=== PATIENT | female | born 1970 | race American Indian/Alaskan Native ===

== ENCOUNTER 2016-08-10 08:50 | Outpatient (CLI) | payer BC ==
[2016-08-10 09:55] LABS: Hematocrit 38.1 % (30.3-42.9); Hemoglobin 12.4 gm/dl (10.1-14.3); Mean Corpuscular HGB Conc 33 % (30-34); Mean Corpuscular Hemoglobin 29 pg (28-32); Mean Corpuscular Volume 88 fl (79-97); Platelet Count 266 K/mm3 (140-440); Red Blood Count 4.32 M/mm3 (3.65-5.03); Red Cell Distribution Width 13.3 % (13.2-15.2); White Blood Count 4.2 K/mm3 (4.5-11.0)
[2016-08-10 10:18] LABS: Alanine Aminotransferase 16 units/L (7-56); Albumin 4.4 g/dL (3.9-5); Albumin/Globulin Ratio 1.4 %; Alkaline Phosphatase 57 units/L (35-129); Anion Gap 13 mmol/L; BUN/Creatinine Ratio 15.71; Bilirubin,Total 0.3 mg/dL (0.1-1.2); Blood Urea Nitrogen 11 mg/dL (7-17); Calcium 9.1 mg/dL (8.4-10.2); Carbon Dioxide 25 mmol/L (22-30); Chloride 103.7 mmol/L (98-107); Cholesterol 141 mg/dL (50-199); Glucose 91 mg/dL (65-100); HDL Cholesterol 52 mg/dL (40-59); LDL Cholesterol,Direct 81 mg/dL (50-130); Potassium 4.2 mmol/L (3.6-5.0); Sodium 137 mmol/L (137-145); Total Protein 7.6 g/dL (6.3-8.2); Triglycerides 40 mg/dL (2-149)
--- NOTE | 2016-08-10 10:36 | Mammography Report ---
BILATERAL MAMMOGRAM: FINDINGS: The breast tissue is heterogeneously dense, which could obscure detection of small masses (approximately 50%-75% glandular). No mass, distortion, suspicious calcification, or skin change is seen. There are no significant changes when compared to her prior examination in 2015. CAD was utilized. IMPRESSION: Negative mammogram. There is no mammographic evidence of malignancy. RECOMMENDATION: Follow-up per ACS guidelines. BI-RADS CATEGORY: 1 = Negative ACR BI-RADS MAMMOGRAPHIC CODES: 0 = Needs additional imaging evaluation; 1 = Negative; 2 = Benign; 3 = Probably benign; 4 = Suspicious; 5 = Malignant; 6 = Known biopsy-proven malignancy COMMENT: 1. Dense breast tissue, i.e., adenosis, fibrocystic changes, etc., may obscure an underlying neoplasm. 2. Approximately 10% of cancers are not detected with mammography. 3. A negative mammography report should not delay biopsy if a clinically suspicious mass is present. COMMENT: Patient follow-up letters are generated in [facility].
[2016-08-12 15:51] LABS: Vitamin D, 25-OH, Total 24 ng/mL (30-100)
== END 2016-08-10 08:51 | disposition home or self-care (01) ==
LOC: MAMMO 08:50
PROVIDERS: ATTEND Obstetrics & Gynecology
DX: Z12.31 Encounter for screening mammogram for malignant neoplasm of breast (principal); Z00.00 Encounter for general adult medical examination without abnormal findings
CPT/HCPCS: 36415; 80053; 80061; 82306; 83036; 84443; 85027; G0202; 77067

== ENCOUNTER 2017-06-16 07:09 | Outpatient (CLI) | payer BC ==
--- NOTE | 2017-06-16 08:30 | Ultrasound Report ---
ULTRASOUND ABDOMEN LIMITED: TECHNIQUE: Transabdominal ultrasound with color Doppler interrogation. HISTORY: right upper quadrant abdominal pain. COMPARISON: none. FINDINGS: LIVER: Normal. BILIARY SYSTEM: Normal. The CBD measures 3.2 mm. PANCREAS: Normal. RIGHT KIDNEY: Normal size, contour and position. A 1.8 x 2.1 cm cyst is noted at the superior pole. No mass, calculus or hydronephrosis. PROXIMAL AORTA: Normal. ASCITES: None. IMPRESSION: Right renal cyst, otherwise, unremarkable exam.
[2017-06-16] MEDS ORDERED: WATER FOR INJ (PF) 10 ML ONE (09:10)
[2017-06-16] MEDS ORDERED: KINEVAC IV ONE ×2 (09:11→09:15)
[2017-06-16] MEDS ORDERED: WATER FOR INJ (PF) IV ONE (09:16)
--- NOTE | 2017-06-16 10:43 | Nuclear Medicine Report ---
HEPATOBILIARY SCAN: History: Right upper quadrant pain. Comparison is made to the right upper quadrant ultrasound performed the same day. Following the injection of the radionuclide, serial scanning was obtained over the right upper quadrant. Initial imaging of the liver demonstrates a relatively normal activity pattern. Progressive concentration of the radionuclide in the bile ducts, with filling of both the gallbladder and small bowel, is identified within a normal time period. The gallbladder ejection fraction is decreased measuring 10%. The patient reports these same symptoms of pain and cramping were reproduced during the infusion of CCK. IMPRESSION: The cystic duct is patent. Decreased gallbladder ejection fraction measuring 10%. Symptomatology as described. Consider biliary dyskinesia.
== END 2017-06-16 07:10 | disposition home or self-care (01) ==
LOC: US 07:09
PROVIDERS: ATTEND Internal Medicine
DX: N28.1 Cyst of kidney, acquired (principal)
CPT/HCPCS: 76705; 78227; A9537; J2805

== ENCOUNTER 2017-07-18 10:23 | Day surgery (SDC) | payer BC ==
[~2017-07-18 10:23] MED LIST: ANCEF/STERILE WATER 2 GM/20 ML IV NR; MARCAINE-EPI 0.5%-1:200,000 INFILTRATI ONE
--- NOTE | 2017-07-18 11:21 | Anesthesia Consultation ---
Anesthesia Consult and Med Hx Date of service: 07/18/17 - Airway Anesthetic Teeth Evaluation: Good ROM Head & Neck: Adequate Mental/Hyoid Distance: Adequate Mallampati Class: Class III Intubation Access Assessment: Possibly Difficult - Pre-Operative Health Status ASA Pre-Surgery Classification: ASA2 - Pulmonary Hx Sleep Apnea: Yes (undiagnosed) - Central Nervous System Hx Psychiatric Problems: No - Endocrine Hx Liver Disease: Yes (gallbladder disease) Hx Non-Insulin Dependent Diabetes: No (takes metformin for polycystic ovarian syndrome) - Other Systems Hx Alcohol Use: No Hx Substance Use: No Hx Cancer: No Hx Obesity: Yes (BMI 33.4)
--- NOTE | 2017-07-18 11:21 | Anesthesia Day of Surgery ---
Anesthesia Day of Surgery - Day of Surgery Patient Examined: Yes Patient H&P Reviewed: Yes Patient is NPO: Yes
[2017-07-18] MEDS ORDERED: NACL 0.9% 1000 ML 1,000 ML ONE (11:24)
[2017-07-18] MEDS ORDERED: PEPCID IV ONE (11:25)
[2017-07-18] MEDS: VERSED IV NR ×2 (11:30→12:26)
[2017-07-18] MEDS ORDERED: DILAUDID ONE ×2 (11:59→13:21)
[2017-07-18] MEDS ORDERED: NACL 0.9% 1000 ML 1,000 ML IV SCH (12:00)
[2017-07-18] MEDS ORDERED: PEPCID IV NR (12:00)
[2017-07-18] MEDS ORDERED: ZEMURON IV ONE (12:00)
[2017-07-18] MEDS ORDERED: DIPRIVAN 10 MG/ML IV ONE (12:00)
[2017-07-18] MEDS ORDERED: XYLOCAINE MPF 2% ONE (12:00)
[2017-07-18] MEDS ORDERED: MARCAINE-EPI/PF 0.5%-1:200,000 INFILTRATI ONE ×2 (12:54)
[2017-07-18] MEDS ORDERED: TORADOL ONE (13:12)
[2017-07-18] MEDS ORDERED: ROBINUL ONE (13:12)
[2017-07-18] MEDS ORDERED: ZOFRAN ONE (13:12)
[2017-07-18] MEDS ORDERED: NEOSTIGMINE ONE (13:12)
--- NOTE | 2017-07-18 13:16 | Operative Report ---
Operative Report Operative Report: Date of procedure: 07/18/2017 Pre-operative diagnosis: Biliary dyskinesia Post-operative diagnosis: Same Procedure name(s): Laparoscopic cholecystectomy Surgeon: Elvis Grissom MD Clinical Social Worker: Marsha Guardado M.D. Anesthesia: General EBL: Minimal Complications: None Instrument Count: correct Indications: This is a 46-year-old female with a history of right upper quadrant pain. A workup was consistent with biliary etiology. She was offered the above-named procedures possible treatment modality. Risks and benefits discussed and all questions were answered. She was subsequently brought to the OR. Findings: As above Procedure: We reviewed the informed consent. We placed the patient supine upon the table. After adequate anesthesia was reached, the patient was prepped and draped in usual sterile fashion. A 5 mm incision was made the level of umbilicus and a Veress needle was placed at this position. The abdomen was then insufflated to 15 mmHg and a 5 mm trocar was placed through the umbilical incision. We inserted the camera at this time. Under direct vision and after infiltration of local anesthetic an 11 mm port was placed in the epigastric location. This was followed by placement of two five mm ports in the right upper quadrant. We identified the gallbladder and the fundus was grasped. This was retracted superiorly. We then grasped the infundibulum and retracted it laterally. At this time we dissected free the cystic duct infundibular junction until the triangle of Calot was clearly identified. We placed 3 clips proximally on the cystic duct, 2 distally. We placed 2 clips proximally on the cystic artery. We transected the cystic duct sharply. We transected the cystic artery using electrocautery. We then dissected the gallbladder free from its fossa using electrocautery. This was placed in Endo Catch bag and removed the abdomen to be sent to pathology for further evaluation. We assured hemostasis at this time. We then evacuated the insufflation. We removed all ports and closed all port sites using a 4-0 Monocryl in a subcuticular fashion. The wounds were bandaged sterilely. The patient tolerated procedure well. They were taken to PACU in no apparent distress after extubation.
--- NOTE | 2017-07-18 13:22 | Short Stay Summary ---
Short Stay Documentation Date of service: 07/18/17 - History H&P: obtained from office - Allergies and Medications Current Medications: Allergies clindamycin Allergy (Verified 06/16/17 09:14) Rash Home Medications Medication Instructions Recorded Confirmed Last Taken Type Metformin HCl 500 mg PO Q48H 07/10/17 07/18/17 07/16/17 History Active Medications Cefazolin Sodium (Ancef/Sterile Water 2 Gm/20 Ml) 2 gm IV PREOP NR Stop: 07/18/17 23:59 Famotidine (Pepcid) 20 mg IV PREOP NR Stop: 07/18/17 23:59 Last Admin: 07/18/17 11:29 Dose: 20 mg Sodium Chloride (Nacl 0.9% 1000 Ml) 1,000 mls @ 100 mls/hr IV DIRECT FIDENCIO Last Admin: 07/18/17 11:28 Dose: 100 mls/hr Midazolam HCl (Versed) 2 mg IV PREOP NR Stop: 07/18/17 23:59 Last Admin: 07/18/17 12:26 Dose: 1 mg - Brief post op/procedure progress note Date of procedure: 07/18/17 Pre-op diagnosis: biliary dyskinesia Post-op diagnosis: same Procedure: Laparoscopic cholecystectomy Anesthesia: GETA, local Surgeon: ALDEN LAGUNAS [employer] Superintendent: MILLA HERNANDEZ Estimated blood loss: minimal Pathology: list (gallbladder) Specimen disposition: to lab - Disposition Condition at discharge: Stable Disposition: DC-01 TO HOME OR SELFCARE Short Stay Discharge Plan Activity: no restrictions Diet: low fat Wound: keep clean and dry Follow up with: ROSIE RIVAS MD [Primary Care Provider] - 7 Days ALDEN LAGUNAS MD [Staff Physician] - 7 Days Prescriptions: Ondansetron [Zofran TAB] 4 mg PO Q8HR PRN #20 tablet PRN Reason: Nausea oxyCODONE /ACETAMINOPHEN [Percocet 5/325] 1 tab PO Q6HR PRN #30 tablet PRN Reason: Pain
[2017-07-18 13:59] VITALS: BP 112/71
== END 2017-07-18 14:45 | disposition home or self-care (01) ==
LOC: OR 10:23
PROVIDERS: ATTEND Surgery
DX: K83.9 Disease of biliary tract, unspecified (principal); E66.9 Obesity, unspecified; G47.30 Sleep apnea, unspecified; Z68.33 Body mass index [BMI] 33.0-33.9, adult; Z88.1 Allergy status to other antibiotic agents; Z79.899 Other long term (current) drug therapy
CPT/HCPCS: 47562; 81025; 82962; 88304; J0690; J1170; J1885; J2250; J2405; J2704; J2710; J7030

== ENCOUNTER 2017-07-27 07:42 | Emergency (ER) | payer BC ==
[2017-07-27] MEDS ORDERED: TYLENOL PO ONE (07:52)
[2017-07-27] MEDS ORDERED: TYLENOL ONE (07:52)
[2017-07-27 08:18] LABS: Hematocrit 39.7 % (30.3-42.9); Mean Corpuscular HGB Conc 33 % (30-34); Mean Corpuscular Hemoglobin 28 pg (28-32); Mean Corpuscular Volume 85 fl (79-97); Platelet Count 276 K/mm3 (140-440); Red Blood Count 4.65 M/mm3 (3.65-5.03); Red Cell Distribution Width 14.5 % (13.2-15.2)
[2017-07-27 08:37] LABS: Alanine Aminotransferase 71 units/L (7-56); BUN/Creatinine Ratio 15; Blood Urea Nitrogen 12 mg/dL (7-17); Calcium 8.9 mg/dL (8.4-10.2); Hemolysis Index 9
[2017-07-27] MEDS ORDERED: ZOFRAN IV ONE (09:20)
[2017-07-27] MEDS ORDERED: DILAUDID IV ONE (09:20)
[2017-07-27] MEDS ORDERED: BENADRYL IV ONE (09:20)
[2017-07-27] MEDS ORDERED: NACL 0.9% 1000 ML 1,000 ML IV ONE (09:21)
--- NOTE | 2017-07-27 09:22 | Emergency Department Report ---
ED General Adult HPI - General Chief complaint: Abdominal Pain Stated complaint: DIARRHEA/VOMITING/POST OP Time Seen by Provider: 07/27/17 09:17 Source: patient Mode of arrival: Ambulatory Limitations: No Limitations - History of Present Illness Initial comments: Patient complained of crampy lower and generalized abdominal pain associated with diarrhea. This developed after she left the hospital on cholecystectomy. She reports no problems with cholecystectomy. She was not aware of her fever which was initially measured at 101.5. She denies any cough or chest pain or respiratory symptoms. She has had some nausea but it has resolved. She has had no recent vomiting. She states he's been eating and a nurse because of diarrhea. She has had no bloody diarrhea. She reports diarrhea as often as times today. -: days(s) Location: abdomen Radiation: non-radiation Severity scale (0 -10): 0 Quality: aching Consistency: intermittent Improves with: none Worsens with: none Associated Symptoms: denies other symptoms Treatments Prior to Arrival: none - Related Data Home Medications Medication Instructions Recorded Confirmed Last Taken Metformin HCl 500 mg PO Q48H 07/10/17 07/18/17 07/16/17 Previous Rx's Medication Instructions Recorded Last Taken Type Ondansetron [Zofran TAB] 4 mg PO Q8HR PRN #20 tablet 07/18/17 Unknown Rx oxyCODONE /ACETAMINOPHEN [Percocet 1 tab PO Q6HR PRN #30 tablet 07/18/17 Unknown Rx 5/325] Allergies Allergy/AdvReac Type Severity Reaction Status Date / Time clindamycin Allergy Rash Verified 06/16/17 09:14 ED Review of Systems ROS: Stated complaint: DIARRHEA/VOMITING/POST OP Other details as noted in HPI Constitutional: denies: chills, fever Eyes: denies: eye pain, eye discharge, vision change ENT: denies: ear pain, throat pain Respiratory: denies: cough, shortness of breath, wheezing Cardiovascular: denies: chest pain, palpitations Endocrine: no symptoms reported Gastrointestinal: abdominal pain, nausea, diarrhea Genitourinary: denies: urgency, dysuria, discharge Musculoskeletal: denies: back pain, joint swelling, arthralgia Skin: denies: rash, lesions Neurological: denies: headache, weakness, paresthesias Psychiatric: denies: anxiety, depression Hematological/Lymphatic: denies: easy bleeding, easy bruising ED Past Medical Hx - Past Medical History Previous Medical History?: Yes Hx Liver Disease: Yes (gallbladder disease) Hx HIV: No Additional medical history: PCOS - Surgical History Past Surgical History?: Yes Hx Cholecystectomy: Yes - Social History Smoking Status: Never Smoker Substance Use Type: None - Medications Home Medications: Home Medications Medication Instructions Recorded Confirmed Last Taken Type Metformin HCl 500 mg PO Q48H 07/10/17 07/18/17 07/16/17 History Ondansetron [Zofran TAB] 4 mg PO Q8HR PRN #20 tablet 07/18/17 Unknown Rx oxyCODONE /ACETAMINOPHEN [Percocet 1 tab PO Q6HR PRN #30 tablet 07/18/17 Unknown Rx 5/325] ED Physical Exam - General Limitations: No Limitations General appearance: alert, in no apparent distress - Head Head exam: Present: atraumatic, normocephalic - Eye Eye exam: Present: normal appearance, PERRL, EOMI. Absent: scleral icterus - ENT ENT exam: Present: mucous membranes moist - Neck Neck exam: Present: normal inspection - Respiratory Respiratory exam: Present: normal lung sounds bilaterally. Absent: respiratory distress - Cardiovascular Cardiovascular Exam: Present: regular rate, normal rhythm. Absent: systolic murmur, diastolic murmur, rubs, gallop - GI/Abdominal GI/Abdominal exam: Present: soft, normal bowel sounds. Absent: distended, tenderness, guarding, rebound, rigid - Extremities Exam Extremities exam: Present: normal inspection - Back Exam Back exam: Present: normal inspection - Neurological Exam Neurological exam: Present: alert, oriented X3, CN II-XII intact. Absent: motor sensory deficit - Psychiatric Psychiatric exam: Present: normal affect, normal mood - Skin Skin exam: Present: warm, dry, intact, normal color. Absent: rash ED Course Vital Signs 07/27/17 07/27/17 07/27/17 07:46 07:58 08:00 Temperature 101.5 F H Pulse Rate 140 H 138 H 124 H Respiratory 18 23 29 H Rate Blood Pressure 122/92 144/84 O2 Sat by Pulse 94 100 Oximetry 07/27/17 07/27/17 07/27/17 08:30 09:00 09:30 Temperature Pulse Rate 111 H 114 H 113 H Respiratory 19 24 14 Rate Blood Pressure 116/66 101/62 112/73 O2 Sat by Pulse 96 Oximetry 07/27/17 10:00 Temperature Pulse Rate 102 H Respiratory 20 Rate Blood Pressure 115/70 O2 Sat by Pulse 97 Oximetry - Reevaluation(s) Reevaluation #1: The patient didn't have much diarrhea here but was able to give a stool sample. There was no vomiting. She did not complain of further abdominal pain after the initial analgesia. Her abdominal exam was benign CT of her abdomen was negative. 07/27/17 15:20 ED Medical Decision Making - Lab Data Result diagrams: 07/27/17 08:02 07/27/17 08:02 Critical care attestation.: If time is entered above; I have spent that time in minutes in the direct care of this critically ill patient, excluding procedure time. ED Disposition Clinical Impression: Dehydration Diarrhea Qualifiers: Diarrhea type: unspecified type Qualified Code(s): R19.7 - Diarrhea, unspecified Disposition: DC-01 TO HOME OR SELFCARE Is pt being admited?: No Does the pt Need Aspirin: No Condition: Stable Instructions: Abdominal Pain (ED), Acute Diarrhea (ED) Additional Instructions: Follow-up with your surgeon and primary care physician. Return any acute change or worsening symptoms. Referrals: PRIMARY CARE, [Primary Care Provider] - 24 Hours Time of Disposition: 15:22
[2017-07-27 10:07] VITALS: BP 115/70
[2017-07-27 10:29] LABS: Albumin 3.7 g/dL (3.9-5)
--- NOTE | 2017-07-27 14:01 | Cat Scan Report ---
CT ABDOMEN PELVIS WITH CONTRAST: HISTORY: abdominal pain. COMPARISON: none. TECHNIQUE: Helical CT in 1.25mm intervals following IV contrast. Sagittal and coronal reconstructions. FINDINGS: Lung bases: Normal. Liver: Normal. Biliary system: Cholecystectomy changes. No biliary dilatation is appreciated. Pancreas: Normal. Spleen: Normal. Kidneys/ureters/bladder: Normal. 2.4 cm right renal cyst is noted. Adrenal glands: Normal. Aorta: Normal. Intestines: Unremarkable given no oral contrast was administered. Appendix: Normal. Pelvic viscera: Within normal limits. An intrauterine device is in good position. Ascites: None. Adenopathy: None. Musculoskeletal: Normal. IMPRESSION: Unremarkable CT scan of the abdomen and pelvis with contrast.
[2017-07-27 14:56] LABS: Basophils % (Auto) 0.3 % (0.0-1.8); Lymphocytes # (Auto) 1.4 K/mm3 (1.2-5.4); Lymphocytes % (Auto) 15.8 % (13.4-35.0); Monocytes # (Auto) 1.5 K/mm3 (0.0-0.8)
[2017-07-27 15:28] LABS: Band Neutrophils # (Manual) 1.6 K/mm3; Monocytes % (Manual) 19 % (0.0-7.3); Platelet Estimate Consistent w Auto
[2017-07-27 15:39] LABS: RBC Morphology Normal
[2017-07-27 16:47] LABS: Total Cells Counted 100
[2017-07-27 16:49] LABS: Monocytes % (Auto) 17.3 % (0.0-7.3)
== END 2017-07-27 14:35 | disposition home or self-care (01) ==
LOC: ED 07:42
DX: E86.0 Dehydration (principal); R19.7 Diarrhea, unspecified
CPT/HCPCS: 36415; 74177; 80053; 84703; 85007; 85025; 87324; 96361; 96374; 96375; 99284; J1170; J1200; J2405; J7030; Q9967

== ENCOUNTER 2017-08-23 08:10 | Outpatient (CLI) | payer BC ==
--- NOTE | 2017-08-23 09:31 | Mammography Report ---
BILATERAL MAMMOGRAM: FINDINGS: The breast tissue is heterogeneously dense, which could obscure detection of small masses (approximately 50%-75% glandular). No mass, distortion, suspicious calcification, or skin change is seen. The is a biopsy marker in the inferomedial right breast. These findings are all unchanged compared to prior exams dating back to July 2015. CAD was utilized. IMPRESSION: Negative mammogram. There is no mammographic evidence of malignancy. RECOMMENDATION: Follow-up per ACS guidelines. BI-RADS CATEGORY: 1 = Negative ACR BI-RADS MAMMOGRAPHIC CODES: 0 = Needs additional imaging evaluation; 1 = Negative; 2 = Benign; 3 = Probably benign; 4 = Suspicious; 5 = Malignant; 6 = Known biopsy-proven malignancy COMMENT: 1. Dense breast tissue, i.e., adenosis, fibrocystic changes, etc., may obscure an underlying neoplasm. 2. Approximately 10% of cancers are not detected with mammography. 3. A negative mammography report should not delay biopsy if a clinically suspicious mass is present. COMMENT: Patient follow-up letters are generated in [employer].
== END 2017-08-23 08:11 | disposition home or self-care (01) ==
LOC: MAMMO 08:10
PROVIDERS: ATTEND Obstetrics & Gynecology
DX: Z12.31 Encounter for screening mammogram for malignant neoplasm of breast (principal)
CPT/HCPCS: 77067

== ENCOUNTER 2018-07-26 07:18 | Outpatient (CLI) | payer BC ==
--- NOTE | 2018-07-26 14:53 | Ultrasound Report ---
ULTRASOUND PELVIC COMPLETE ULTRASOUND TRANSVAGINAL HISTORY: Intrauterine device surveillance. COMPARISON: 04/12/18. TECHNIQUE: Transabdominal and transvaginal ultrasound with color doppler interrogation. FINDINGS: Uterus: The uterus is anteverted. The uterus measures 9.2 x 4.8 x 6.4 cm. No uterine fibroids are identified. Normal cervix. Endometrium: 6.8 mm. An intrauterine device is identified within the endometrial canal which extends to the uterine fundus. The position appears unchanged since 04/12/18. Right ovary: 3.2 x 2.0 x 1.9 cm. No focal abnormality. Left ovary: 5.6 x 3.1 x 3.3 cm. A 3.3 cm cyst with internal debris is noted in the left ovary. No pelvic fluid or mass is identified. Normal color doppler interrogation. IMPRESSION: Unremarkable uterus, endometrium and right ovary. The IUD appears in good position and unchanged since the previous exam. 3.3 cm slightly complex left ovarian cyst.
== END 2018-07-26 07:19 | disposition home or self-care (01) ==
LOC: US 07:18
PROVIDERS: ATTEND Obstetrics & Gynecology
DX: Z30.431 Encounter for routine checking of intrauterine contraceptive device (principal); N83.202 Unspecified ovarian cyst, left side; Z90.49 Acquired absence of other specified parts of digestive tract; E11.9 Type 2 diabetes mellitus without complications
CPT/HCPCS: 76830; 76856

== ENCOUNTER 2018-09-05 07:01 | Outpatient (CLI) | payer BC ==
--- NOTE | 2018-09-05 14:20 | Ultrasound Report ---
ULTRASOUND PELVIC COMPLETE ULTRASOUND TRANSVAGINAL HISTORY: Ovarian cyst left side. COMPARISON: 07/26/18. TECHNIQUE: Transabdominal and transvaginal ultrasound with color doppler interrogation. FINDINGS: Uterus: The uterus is anteverted. The uterus measures 9.0 x 4.7 x 6.6 cm. No uterine mass. Normal cervix. Endometrium: 6.6 mm in thickness. An intrauterine device is again noted in good position. Right ovary: 3.7 x 2.3 x 2.9 cm. There are 2 small cysts in the right ovary measuring 1.2 cm and 1.6 cm. Left ovary: 3.1 x 2.3 x 2.0 cm. The previously described left ovarian cyst has decreased from 3.3 cm to 1.5 cm. No pelvic fluid or mass is identified. Normal color doppler interrogation. IMPRESSION: Bilateral simple ovarian cysts as described
== END 2018-09-05 07:02 | disposition home or self-care (01) ==
LOC: US 07:01
PROVIDERS: ATTEND Obstetrics & Gynecology
DX: Z13.1 Encounter for screening for diabetes mellitus (principal); N83.292 Other ovarian cyst, left side; N83.291 Other ovarian cyst, right side; E66.9 Obesity, unspecified; E11.9 Type 2 diabetes mellitus without complications; Z90.49 Acquired absence of other specified parts of digestive tract
CPT/HCPCS: 36415; 76830; 76856; 83036

== ENCOUNTER 2018-09-06 07:22 | Outpatient (CLI) | payer BC ==
--- NOTE | 2018-09-06 13:06 | Mammography Report ---
BILATERAL DIGITAL SCREENING MAMMOGRAM with CAD: 09/06/18 07:22:00 CLINICAL: Routine screening.Previous right benign biopsy. COMPARISON:08/23/17 FINDINGS: There are scattered areas of fibroglandular density.A right lower inner biopsy clip. No mass, architectural distortion or suspicious calcifications. IMPRESSION: No mammographic evidence of malignancy. BI-RADS CATEGORY: 2 -- Benign RECOMMENDATION: Routine mammographic screening in one year. COMMENT: Patient follow-up letters are generated by our [employer] application.
== END 2018-09-06 07:23 | disposition home or self-care (01) ==
LOC: MAMMO 07:22
PROVIDERS: ATTEND Obstetrics & Gynecology
DX: Z12.31 Encounter for screening mammogram for malignant neoplasm of breast (principal); E66.9 Obesity, unspecified; E11.9 Type 2 diabetes mellitus without complications
CPT/HCPCS: 77067

== ENCOUNTER 2018-09-24 12:12 | Emergency (ER) | payer BC ==
[2018-09-24 12:23] VITALS: BP 139/74
--- NOTE | 2018-09-24 12:25 | Emergency Department Report ---
Blank Doc - Documentation Documentation: This is a 47-year-old female that presents with right eye pain. Exam shows ri ght eye congential swelling. Stated has foreign body sensation. This initial assessment/diagnostic orders/clinical plan/treatment(s) is/are subject to change based on patient's health status, clinical progression and re- assessment by fellow clinical providers in the ED. Further treatment and workup at subsequent clinical providers discretion. Patient/guardians urged not to elope from the ED as their condition may be serious if not clinically assessed and managed. Initial orders include: 1- Patient sent to [facility] for further evaluation and treatment 2- visual acuity 3- hyatt lamp 4- Tonopen
--- NOTE | 2018-09-24 13:33 | Emergency Department Report ---
[facility] Chief Complaint: Eye Problems Stated Complaint: ALLERGIC REACTION Time Seen by Provider: 09/24/18 12:19 Duration: 2 Days Side: Right Severity: moderate Symptoms: Yes Eye Itching, Yes Eye Redness, Yes Eye Pain (mild discomfort), Yes Mucous Drainage, Yes Blurred Vision (had a film over the visual field ealier), Yes H/O Allergic Rhinitis (mild), No Purulent Drainage, No Preceding URI, No Contact Lens Use, No Trauma, No Fever ED Review of Systems ROS: Stated complaint: ALLERGIC REACTION Other details as noted in HPI Comment: All other systems reviewed and negative ED Past Medical Hx - Past Medical History Previous Medical History?: Yes Hx Liver Disease: Yes (gallbladder disease) Hx HIV: No Additional medical history: PCOS - Surgical History Hx Cholecystectomy: Yes - Social History Smoking Status: Never Smoker Substance Use Type: None - Medications Home Medications: Home Medications Medication Instructions Recorded Confirmed Last Taken Type Metformin HCl 500 mg PO Q48H 07/10/17 07/18/17 07/16/17 History Ondansetron [Zofran TAB] 4 mg PO Q8HR PRN #20 tablet 07/18/17 Unknown Rx oxyCODONE /ACETAMINOPHEN [Percocet 1 tab PO Q6HR PRN #30 tablet 07/18/17 Unknown Rx 5/325] HYDROcodone/APAP 5-325 [[place]ar[place] 1 each PO Q6HR PRN #10 tablet 04/12/18 Unknown Rx 5/325] Gentamicin 0.3% Ophth Soln 2 drops OP Q4H #1 bottle 09/24/18 Unknown Rx Naphazoline HCl/Pheniramine 15 ml OP TID #1 bottle 09/24/18 Unknown Rx [Naphcon-A Eye Drops] [facility] Exam - Exam General: Vital signs noted. No distress. Alert and acting appropriately. Eye Exam: Right Injection, Right Chemosis, Right Corneal Edema, Neither Abnormal Pupil, Neither EOMI, Neither Eye Foreign Body, Neither Lid Foreign Body, Neither Mucous Discharge, Neither Purulent Discharge HEENT: No Nasal Congestion, No Pharyngeal Erythema Lungs: Yes Clear Lung Sounds, Yes Good Air Exchange, No Wheezes, No Stridor, No Cough, No Nasal Flaring, No Retractions, No Use of Accessory Muscles ED Course Vital Signs 09/24/18 12:21 Temperature 98.9 F Pulse Rate 94 H Respiratory 16 Rate Blood Pressure 139/74 O2 Sat by Pulse 98 Oximetry ED Medical Decision Making - Medical Decision Making Patient with a mild conjunctivitis possibly secondary to corneal abrasion. Patient will be started on gentamicin Naphcon will be discharged home. Critical care attestation.: If time is entered above; I have spent that time in minutes in the direct care of this critically ill patient, excluding procedure time. ED Disposition Clinical Impression: Conjunctivitis Qualifiers: Conjunctivitis type: unspecified Laterality: right Qualified Code(s): H10.9 - Unspecified conjunctivitis Disposition: DC- TO HOME OR SELFCARE Is pt being admited?: No Does the pt Need Aspirin: No Condition: Stable Instructions: Conjunctivitis (ED) Referrals: DWAYNE VU MD [Primary Care Provider] - 3-5 Days Time of Disposition: 13:33
== END 2018-09-24 13:40 | disposition home or self-care (01) ==
LOC: ED 12:12
DX: H10.9 Unspecified conjunctivitis (principal); E28.2 Polycystic ovarian syndrome; Z90.49 Acquired absence of other specified parts of digestive tract; Z88.1 Allergy status to other antibiotic agents
CPT/HCPCS: 99283

== ENCOUNTER 2018-10-22 11:00 | Outpatient (CLI) | payer BC | END 2018-10-22 11:01 | disposition home or self-care (01) | LOC: SLR 11:00 | PROVIDERS: ATTEND Otolaryngology | DX: G47.33 Obstructive sleep apnea (adult) (pediatric) (principal); R40.0 Somnolence; E66.9 Obesity, unspecified | CPT/HCPCS: 95810 ==

== ENCOUNTER → 2018-10-23 | Outpatient (CLI) | payer BC | END | disposition home or self-care (01) | LOC: SLR 11:00 | PROVIDERS: ATTEND Otolaryngology | DX: G47.33 Obstructive sleep apnea (adult) (pediatric) (principal); R40.0 Somnolence; R06.83 Snoring; E66.9 Obesity, unspecified | CPT/HCPCS: 95811 ==

== ENCOUNTER 2019-09-13 12:20 | Outpatient (CLI) | payer BC ==
--- NOTE | 2019-09-13 13:12 | Mammography Report ---
DIGITAL SCREENING MAMMOGRAM WITH CAD, 09/13/2019 INDICATION: Routine screening mammography. TECHNIQUE: Digital bilateral 2D mammography was obtained in the craniocaudal and mediolateral obliq ue projections. This examination was interpreted with the benefit of Computer-Aided Detection analysi s. COMPARISON: 09/06/2018, 08/23/2017 FINDINGS: Breast Density: There are scattered areas of fibroglandular density. There is no evidence of dominant mass, suspicious calcifications or architectural distortion in eithe r breast. Biopsy marker device is identified right breast. IMPRESSION: Follow up recommendation: Routine yearly BI-RADS Category 2: Benign. A "normal" or negative report should not discourage follow up or biopsy of a clinically significant f inding. A written summary of these findings will be mailed to the patient. The patient will be entered into a mammography reporting system which will generate a reminder letter for the patient's next appointmen t at the appropriate interval. The [employer] recommends yearly mammograms starting at age 40 and continuing as l marian as a woman is in good health. Breast MRI is recommended for women with an approximate 20-25% or greater lifetime risk of breast cancer, including women with a strong family history of breast or ova marya cancer or who have been treated for Hodgkin's disease. Signer Name: Jose Angel Goins MD Signed: 09/13/2019 1:08 PM Workstation Name: [email or web address]
== END 2019-09-13 12:21 | disposition home or self-care (01) ==
LOC: MAMMO 12:20
PROVIDERS: ATTEND Obstetrics & Gynecology
DX: Z12.31 Encounter for screening mammogram for malignant neoplasm of breast (principal)
CPT/HCPCS: 77067

== ENCOUNTER 2020-06-17 07:06 | Outpatient (CLI) | payer BC ==
[2020-06-17 07:41] LABS: Hematocrit 38.8 % (30.3-42.9); Hemoglobin 13.2 gm/dl (10.1-14.3); Mean Corpuscular HGB Conc 34 % (30-34); Mean Corpuscular Volume 91 fl (79-97); Platelet Count 284 K/mm3 (140-440); Red Blood Count 4.26 M/mm3 (3.65-5.03); Red Cell Distribution Width 13.5 % (13.2-15.2)
[2020-06-17 08:04] LABS: Alanine Aminotransferase 15 units/L (7-56); Albumin 4.1 g/dL (3.9-5); Blood Urea Nitrogen 12 mg/dL (7-17); HDL Cholesterol 51 mg/dL (40-59); Hemolysis Index 3; LDL Cholesterol,Direct 97 mg/dL (50-130)
[2020-06-17 08:23] LABS: BUN/Creatinine Ratio 17
== END 2020-06-17 07:07 | disposition home or self-care (01) ==
LOC: LAB 07:06
PROVIDERS: ATTEND Obstetrics & Gynecology
DX: Z13.1 Encounter for screening for diabetes mellitus (principal)
CPT/HCPCS: 36415; 80053; 80061; 83036; 84443; 85027

== ENCOUNTER 2020-09-15 07:14 | Outpatient (CLI) | payer BC ==
--- NOTE | 2020-09-15 10:21 | Mammography Report ---
DIGITAL SCREENING MAMMOGRAM WITH CAD, 09/15/2020 CLINICAL INFORMATION / INDICATION: Routine screening mammography. TECHNIQUE: Digital bilateral 2D mammography was obtained in the craniocaudal and mediolateral obliqu e projections. This examination was interpreted with the benefit of Computer-Aided Detection analysis . COMPARISON: 09/06/2018 FINDINGS: Breast Density: There are scattered areas of fibroglandular density. No dominant mass, suspicious calcifications, or architectural distortion in either breast. No interval change. IMPRESSION: No mammographic evidence of malignancy. Follow up recommendation: Routine yearly BI-RADS Category 1: Negative. A "normal" or negative report should not discourage follow up or biopsy of a clinically significant f inding. A written summary of these findings will be mailed to the patient. The patient will be entered into a mammography reporting system which will generate a reminder letter for the patient's next appointmen t at the appropriate interval. The [employer] recommends yearly mammograms starting at age 40 and continuing as l marian as a woman is in good health. Breast MRI is recommended for women with an approximate 20-25% or greater lifetime risk of breast cancer, including women with a strong family history of breast or ova marya cancer or who have been treated for Hodgkin's disease. Signer Name: Geovanna Mahan MD Signed: 09/15/2020 10:16 AM Workstation Name: [email or web address]
== END 2020-09-15 07:15 | disposition home or self-care (01) ==
LOC: MAMMO 07:14
PROVIDERS: ATTEND Obstetrics & Gynecology
DX: Z12.31 Encounter for screening mammogram for malignant neoplasm of breast (principal)
CPT/HCPCS: 36415; 77067; 83036

== ENCOUNTER 2020-12-25 06:28 | Outpatient (CLI) | payer BC | END 2020-12-25 06:29 | disposition home or self-care (01) | LOC: LAB 06:28 | PROVIDERS: ATTEND Internal Medicine | DX: E28.2 Polycystic ovarian syndrome (principal); 000.000 | CPT/HCPCS: 36415; 80053; 83036; 85027 ==

== ENCOUNTER 2021-03-22 07:25 | Outpatient (CLI) | payer BC ==
[2021-03-22 07:59] LABS: Bacteria,Urine 1+ /HPF (Negative); Mucus,Urine 2+ /HPF
[2021-03-22 08:01] LABS: Hematocrit 41.8 % (30.3-42.9); Hemoglobin 14.1 gm/dl (10.1-14.3); Mean Corpuscular HGB Conc 34 % (30-34); Mean Corpuscular Volume 91 fl (79-97); Platelet Count 257 K/mm3 (140-440); Red Blood Count 4.58 M/mm3 (3.65-5.03); Red Cell Distribution Width 13.6 % (13.2-15.2)
[2021-03-22 08:24] LABS: Alanine Aminotransferase 17 units/L (7-56); Albumin 4.2 g/dL (3.9-5); BUN/Creatinine Ratio 15; Blood Urea Nitrogen 12 mg/dL (7-17); Chol/HDL Ratio 2.42 %; HDL Cholesterol 64 mg/dL (40-59); Hemolysis Index 13; LDL Cholesterol,Direct 86 mg/dL (50-130)
[2021-03-22 08:33] LABS: Bilirubin,Urine Negative (Negative); Blood,Urine 3+ (Negative); Color,Urine Straw (Yellow); Urobilinogen,Urine < 2.0 mg/dL (<2.0)
== END 2021-03-22 07:26 | disposition home or self-care (01) ==
LOC: LAB 07:25
PROVIDERS: ATTEND Clinical Nurse Specialist Family Health
DX: E66.01 Morbid (severe) obesity due to excess calories (principal); E28.2 Polycystic ovarian syndrome; Z79.899 Other long term (current) drug therapy
CPT/HCPCS: 36415; 80053; 80061; 81001; 83036; 84443; 85027; 87086

== ENCOUNTER 2021-08-20 06:56 | Outpatient (CLI) | payer BC ==
[2021-08-20 07:43] LABS: RBC,Urine < 1.0 /HPF (0.0-6.0)
[2021-08-20 07:49] LABS: Bilirubin,Urine Negative (Negative); Color,Urine Yellow (Yellow)
[2021-08-20 07:50] LABS: Blood,Urine Small (Negative); Urobilinogen,Urine < 2.0 mg/dL (<2.0); WBC,Urine < 1.0 /HPF (0.0-6.0)
== END 2021-08-20 06:57 | disposition home or self-care (01) ==
LOC: LAB 06:56
PROVIDERS: ATTEND Internal Medicine
DX: E11.9 Type 2 diabetes mellitus without complications (principal); N39.0 Urinary tract infection, site not specified
CPT/HCPCS: 36415; 81001; 83036

== ENCOUNTER 2021-09-16 13:14 | Outpatient (CLI) | payer BC ==
--- NOTE | 2021-09-20 15:28 | Mammography Report ---
DIGITAL SCREENING MAMMOGRAM WITH CAD, 09/16/2021 CLINICAL INFORMATION / INDICATION: Routine screening mammography. Z12.31 TECHNIQUE: Digital bilateral 2D mammography was obtained in the craniocaudal and mediolateral obliqu e projections. This examination was interpreted with the benefit of Computer-Aided Detection analysis . COMPARISON: 09/15/2020, 09/13/2019 FINDINGS: Breast Density: There are scattered areas of fibroglandular density. No dominant mass, suspicious calcifications, or architectural distortion in either breast. No interval change. IMPRESSION: No mammographic evidence of malignancy. Follow up recommendation: Routine yearly screening mammogram. BI-RADS Category 1: NEGATIVE A "normal" or negative report should not discourage follow up or biopsy of a clinically significant f inding. A written summary of these findings will be mailed to the patient. The patient will be entered into a mammography reporting system which will generate a reminder letter for the patient's next appointmen t at the appropriate interval. The [employer] recommends yearly mammograms starting at age 40 and continuing as l marian as a woman is in good health. Breast MRI is recommended for women with an approximate 20-25% or greater lifetime risk of breast cancer, including women with a strong family history of breast or ova marya cancer or who have been treated for Hodgkin's disease. Signer Name: Geovanna Mahan MD Signed: 09/20/2021 3:23 PM Workstation Name: [id number]
== END 2021-09-16 13:15 | disposition home or self-care (01) ==
LOC: MAMMO 13:14
PROVIDERS: ATTEND Obstetrics & Gynecology
DX: Z12.31 Encounter for screening mammogram for malignant neoplasm of breast (principal)
CPT/HCPCS: 77067

== ENCOUNTER 2021-12-14 06:58 | Day surgery (SDC) | payer BC ==
[2021-12-14] MEDS ORDERED: SODIUM CHLORIDE 0.9% 1000 ML 1,000 ML IV SCH (07:00)
[2021-12-14] MEDS ORDERED: WATER FOR IRRIG STERILE 1,000 ML BOTTLE ONE (07:28)
[2021-12-14] MEDS ORDERED: WATER FOR IRRIG STERILE 250 ML BOTTLE IR ONE (07:28)
--- NOTE | 2021-12-14 07:43 | Anesthesia Consultation ---
Anesthesia Consult and Med Hx Date of service: 12/14/21 - Airway Anesthetic Teeth Evaluation: Good ROM Head & Neck: Adequate Mental/Hyoid Distance: Adequate Mallampati Class: Class III Intubation Access Assessment: Possibly Difficult - Pre-Operative Health Status ASA Pre-Surgery Classification: ASA2 Proposed Anesthetic Plan: MAC - Pulmonary Hx Smoking: Yes (former smoker) Hx Sleep Apnea: Yes (uses CPAP ) - Central Nervous System Hx Psychiatric Problems: No - Endocrine Hx Liver Disease: No Hx Non-Insulin Dependent Diabetes: No (takes metformin for polycystic ovarian syndrome) - Other Systems Hx Alcohol Use: No Hx Substance Use: No Hx Cancer: No Hx Obesity: Yes (BMI 35.7)
--- NOTE | 2021-12-14 07:44 | Anesthesia Day of Surgery ---
Anesthesia Day of Surgery - Day of Surgery Patient Examined: Yes Patient H&P Reviewed: Yes Patient is NPO: Yes
[2021-12-14] MEDS ORDERED: LIDOCAINE MPF (2%) 20 MG/1 ML VIAL 5 ML ONE (08:01)
[2021-12-14] MEDS ORDERED: propofoL 200 MG/20 ML VIAL IV ONE (08:07)
--- NOTE | 2021-12-14 08:33 | Short Stay Summary ---
Short Stay Documentation Date of service: 12/14/21 Narrative H&P: The patient presents for routine screening colonoscopy. No prior studies. Average risk profile. - History Past Medical History: diabetes Past Surgical History: cholecystectomy Social history: no significant social history - Allergies and Medications Current Medications: Allergies clindamycin Allergy (Verified 06/16/17 09:14) Rash Home Medications Medication Instructions Recorded Confirmed Last Taken Type Metformin HCl 500 mg PO Q48H 07/10/17 07/18/17 07/16/17 History Bupropion HCl 12/13/21 Unknown History North 24 Fe 1 mg-20 Mcg Tablet 12/13/21 Unknown History Active Medications Sodium Chloride (Nacl 0.9% 1000 Ml) 1,000 mls @ 50 mls/hr IV DIRECT FIDENCIO - Physical exam General appearance: no acute distress, well-nourished, obese Integumentary: no rash, no growths, no abnormal pigmentation HEENT: Atraumatic, PERRLA, EOMI, Mucous membr. moist/pink Lungs: Clear to auscultation, Normal air movement Breasts: deferred Heart: Regular rate, Normal S1, Normal S2, No murmurs Gastrointestinal: normoactive bowel sounds, no tenderness, no distended, no masses, no guarding Female Genitourinary: deferred Rectal Exam: normal exam-external/orifice, no mass Extremities: no ischemia, pulses intact, pulses symmetrical, No edema, normal temperature, normal color, Full ROM Neurological: Normal gait, Normal speech, Strength at 5/5 X4 ext, Normal tone, Sensation intact, Cranial nerves 3-12 NL - Brief post op/procedure progress note Date of procedure: 12/14/21 Procedure: see dictation Estimated blood loss: none Pathology: none Condition: stable - Disposition Condition at discharge: Good Disposition: 01 HOME / SELF CARE / HOMELESS - Discharge Diagnoses (1) Colon cancer screening Status: Acute Short Stay Discharge Plan Activity: other (no driving for 24 hours) Weight Bearing Status: Full Weight Bearing Diet: diabetic Follow up with: DWAYNE VU MD [Primary Care Provider] - 7 Days
--- NOTE | 2021-12-14 08:34 | Operative Report ---
Operative Report Operative Report: Date of procedure: 12/14/2021 Preprocedure diagnosis: Colon cancer screening, average risk. No prior studies. Post procedure diagnosis: Normal study Procedure: Colonoscopy to the cecum Endoscopist: Dr. Gonzalez Anesthesia: Monitored anesthesia care per anesthesia department Estimated blood loss: 0 Medications: Monitored anesthesia care. See separate report by anesthesia for details. After careful discussion of the nature and purpose of the procedure as well as details of the technique risks benefits and alternatives the patient gave consent. Please see recent history and physical from the office. The patient was placed in the left lateral decubitus position and medicated per anesthesia. A rectal exam was performed sphincter tone was normal there were no masses palpable. The [employer] 570 scope was passed transanally and advanced under continuous direct vision without difficulty to the cecum. The colon was well prepared. The cecum was normal. The ascending colon was normal and on forward and retroflexed views. The transverse colon, descending colon, and sigmoid colon were normal. The rectum was normal on forward and retroflexed views. The procedure was well-tolerated overall and the patient was observed in recovery. Conclusions: Normal colonoscopy to the cecum. Plan: Repeat colonoscopy in 10 years, sooner if clinically indicated. Signed electronically: Ignacio Gonzalez M.D.
--- NOTE | 2021-12-14 13:18 | Post Anesthesia Evaluation ---
- Post Anesthesia Evaluation Patient Participated: Yes Airway Patent: Yes Stable Respiratory Function: Yes Nausea/Vomiting: No Temp > 96.8F: Yes Pain Manageable: Yes Adequeate Hydration: Yes Anesthesia Complications: No
[2021-12-14 14:41] VITALS: BP 122/87
== END 2021-12-14 09:07 | disposition home or self-care (01) ==
LOC: GIO 06:58
PROVIDERS: ATTEND Internal Medicine Gastroenterology
DX: Z12.11 Encounter for screening for malignant neoplasm of colon (principal); G47.33 Obstructive sleep apnea (adult) (pediatric); E66.9 Obesity, unspecified; E11.9 Type 2 diabetes mellitus without complications; Z88.8 Allergy status to other drugs, medicaments and biological substances; Z79.899 Other long term (current) drug therapy; Z79.84 Long term (current) use of oral hypoglycemic drugs; Z90.49 Acquired absence of other specified parts of digestive tract; Z68.35 Body mass index [BMI] 35.0-35.9, adult; Z87.891 Personal history of nicotine dependence; Z80.0 Family history of malignant neoplasm of digestive organs; Z80.3 Family history of malignant neoplasm of breast
CPT/HCPCS: 45378; J2704; J7030

== ENCOUNTER 2021-12-30 08:53 | Outpatient (CLI) | payer BC | END 2021-12-30 08:54 | disposition home or self-care (01) | LOC: LABHHL 08:53 | PROVIDERS: ATTEND Internal Medicine | DX: E11.9 Type 2 diabetes mellitus without complications (principal) | CPT/HCPCS: 36415; 83036 ==